=== PATIENT | female | born 1995 ===

== ENCOUNTER 2017-12-03 03:34 | Emergency (ER) | payer MEDICAID ==
--- NOTE | 2017-12-03 04:20 | ED PDOC ---
HPI: Back Time Seen by Provider: 12/03/17 04:00 Chief Complaint (Nursing): Headache Chief Complaint (Provider): neck pain History Per: Patient History/Exam Limitations: no limitations Onset/Duration Of Symptoms: Hrs (6) Current Symptoms Are (Timing): Still Present Exacerbating Factor(s): Turning, Movement Additional Complaint(s): 22 y/o female presents for evaluation of right-sided neck pain x 6 hours. Patient states she was driving when symptoms presented. States pain worse with movement of head. Denies neck trauma, fever, headache, extremity numbness/ weakness. No medication taken for relief thus far Past Medical History Reviewed: Historical Data, Nursing Documentation, Vital Signs Vital Signs: Last Vital Signs Temp 98.6 F 12/03/17 03:56 Pulse 66 12/03/17 03:56 Resp 14 12/03/17 03:56 BP 104/69 12/03/17 03:56 Pulse Ox 99 12/03/17 03:56 - Medical History PMH: Seizures (as adolescent) - Surgical History Surgical History: No Surg Hx - Family History Family History: States: No Known Family Hx - Living Arrangements Living Arrangements: With Family - Home Medications Home Medications: Ambulatory Orders Medication Instructions Recorded Cyclobenzaprine [Cyclobenzaprine 10 mg PO BID PRN #14 tab 12/03/17 HCl] Ibuprofen [Motrin Tab] 1 tab PO Q6 PRN #20 tab 12/03/17 traMADol [Ultram] 50 mg PO Q8 PRN #10 tab 12/03/17 - Allergies Allergies/Adverse Reactions: Allergies Allergy/AdvReac Type Severity Reaction Status Date / Time No Known Allergies Allergy Verified 12/03/17 03:54 Review of Systems ROS Statement: Except As Marked, All Systems Reviewed And Found Negative Musculoskeletal: Positive for: Neck Pain Physical Exam - Reviewed Nursing Documentation Reviewed: Yes Vital Signs Reviewed: Yes - Physical Exam Appears: Positive for: Well, Non-toxic, Uncomfortable (head rotated slightly left) Head Exam: Positive for: ATRAUMATIC, NORMAL INSPECTION, NORMOCEPHALIC Skin: Positive for: Normal Color Eye Exam: Positive for: Normal appearance ENT: Positive for: Normal ENT Inspection Cardiovascular/Chest: Positive for: Regular Rate, Rhythm Respiratory: Positive for: Normal Breath Sounds Back: Positive for: Muscle Spasm (tender to palpate right SCM from insertion of mastoid process midway down; no ecchymosis, edema, deformity noted. Limited ROM right head tilt, right rotation, extension due to pain on right side of neck ) Extremity: Positive for: Normal ROM Neurologic/Psych: Positive for: Alert, Oriented (x3). Negative for: Motor/ Sensory Deficits - ECG O2 Sat by Pulse Oximetry: 99 - Progress ED Course And Treament: 22 y/o female with acute onset atraumatic right-sided neck pain x 6 hours Plan: Toradol IM Flexeril PO Tramadol PO 5:25 Patient states pain improved. Head position more neutral Patient educated on findings, discharged with rx Tramadol, Flexeril, Ibuprofen Advised warm compresses Follow up PMD 2-3 days Return precautions given Disposition - Clinical Impression Clinical Impression: Torticollis, acute - Patient ED Disposition Is Patient to be Admitted: No Counseled Patient/Family Regarding: Diagnosis, Need For Followup, Rx Given - Disposition Disposition: Routine/Home Disposition Time: 05:28 Condition: IMPROVED Prescriptions: Cyclobenzaprine [Cyclobenzaprine HCl] 10 mg PO BID PRN #14 tab PRN Reason: Muscle Spasm Ibuprofen [Motrin Tab] 1 tab PO Q6 PRN #20 tab PRN Reason: Pain, Moderate (4-7) traMADol [Ultram] 50 mg PO Q8 PRN #10 tab PRN Reason: Pain, Severe (8-10) Instructions: Torticollis, Adult Forms: [facility] ([facility])
[2017-12-03 06:39] VITALS: BP 110/62; PULSE 72; RESP 16; TEMP 98.2; O2SAT 98
== END 2017-12-03 05:45 | disposition home or self-care (01) ==
LOC: H.ER 03:34
DX: M43.6 Torticollis (principal)
CPT/HCPCS: 81025; 96372; 99285; J1885